=== PATIENT | male | born 1980 ===

== ENCOUNTER 2018-05-12 08:22 | Emergency (ER) | payer SELFPAY ==
[2018-05-12 08:44] VITALS: BP 150/97
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
[2018-05-12] MEDS ORDERED: Famotidine TAB* 20 MG PO ONE (09:10)
[2018-05-12] MEDS ORDERED: Ketorolac INJ* 30 MG/ML 1 ML VIAL IM ONE (09:11)
--- NOTE | 2018-05-12 09:54 | RAD ---
Indication: Right rib pain and injury. 3 views of the right ribs demonstrates fracture of the right 11th rib posteriorly. No other fractures are noted. IMPRESSION: Fracture of the right 11th rib posteriorly. There is widening and displacement noted.
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
--- NOTE | 2018-05-12 12:21 | RAD ---
HISTORY: Pt w/ RT posterior rib fracture #11 r/o any abnorm COMPARISONS: None TECHNIQUE: Multiple transverse and longitudinal ultrasound images were obtained of the right upper quadrant of the abdomen using grayscale, color Doppler, and spectral Doppler imaging. FINDINGS: The study is limited by patient body habitus. LIVER: The liver is normal in shape, size, contour, and echogenicity. There are no focal parenchymal masses. There is normal hepatopedal flow of the portal vein on Doppler imaging. BILIARY TREE: There is no intrahepatic or extrahepatic biliary dilatation. The common duct measures 0.5 cm. GALLBLADDER: The gallbladder is incompletely distended but is grossly normal. There is no sonographic Pinon sign. PANCREAS: The head of the pancreas is unremarkable. The tail of the pancreas is not well visualized secondary to overlying bowel gas. RIGHT KIDNEY: The right kidney is normal in shape, size, contour, and echogenicity. There is no hydronephrosis or nephrolithiasis. The right kidney measures 13.1 x 7.3 x 6.6 cm. AORTA AND IVC: The aorta and IVC are unremarkable. Normal arterial waveforms are identified within the aorta on spectral Doppler imaging. FLUID: There are no pleural effusions. There is no free fluid within the hepatorenal recess. OTHER FINDINGS: None. IMPRESSION: THERE ARE NO PERIHEPATIC FLUID COLLECTIONS. THERE IS NO ACUTE SONOGRAPHIC PATHOLOGY OF THE VISUALIZED PORTION OF THE ABDOMEN.
== END 2018-05-12 12:30 | disposition home or self-care (01) ==
LOC: UCEAST 08:22
DX: S29.9XXA Unspecified injury of thorax, initial encounter (principal); S39.92XA Unspecified injury of lower back, initial encounter; S22.31XA Fracture of one rib, right side, initial encounter for closed fracture; W18.09XA Striking against other object with subsequent fall, initial encounter; Y93.9 Activity, unspecified; Y92.89 Other specified places as the place of occurrence of the external cause; M51.37 Other intervertebral disc degeneration, lumbosacral region; R03.0 Elevated blood-pressure reading, without diagnosis of hypertension; Z83.3 Family history of diabetes mellitus; Z80.0 Family history of malignant neoplasm of digestive organs
CPT/HCPCS: 72110; 76705; 81003; 99202; A9270-GY; G0463; J1885